=== PATIENT | female | born 1985 | race Caucasian/White ===

== ENCOUNTER 2017-02-05 07:06 | Emergency (ER) | payer OTHER ==
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
[2017-02-05] MEDS ORDERED: FLEXERIL PO ONE (07:49)
[2017-02-05] MEDS ORDERED: NORCO 5/325 PO ONE (07:49)
--- NOTE | 2017-02-05 08:49 | XRay Report ---
AP CHEST: HISTORY: chest pain AP view of the chest demonstrates a normal mediastinal and cardiac contour with clear lungs and normal bony and soft tissue structures. IMPRESSION: Unremarkable AP chest.
--- NOTE | 2017-02-05 08:50 | XRay Report ---
CERVICAL SPINE, 3 views: History: Neck pain. Findings: The vertebral bodies, disk spaces, posterior elements and prevertebral soft tissues are unremarkable. The dens is intact. No acute fracture or malalignment is identified. Impression: 1. No evidence for acute injury to the cervical spine.
--- NOTE | 2017-02-05 08:50 | XRay Report ---
RIGHT SHOULDER: History: Pain. Routine views demonstrate normal bony and soft tissue structures with normal joint alignment of the shoulder. IMPRESSION: Normal study.
--- NOTE | 2017-02-05 08:51 | XRay Report ---
THORACOLUMBAR SPINE, 2 VIEWS History: Back pain. Findings: There is moderate dextrocurvature of the thoracolumbar junction. No evidence for fracture, subluxation or bone lesion. No significant degenerative changes. Impression: No acute injury appreciated. Scoliosis.
[2017-02-05 09:40] VITALS: BP 107/70
== END 2017-02-05 09:41 | disposition home or self-care (01) ==
LOC: ED 07:06
DX: S16.1XXA Strain of muscle, fascia and tendon at neck level, initial encounter (principal); M41.25 Other idiopathic scoliosis, thoracolumbar region; M25.511 Pain in right shoulder; M54.5 Low back pain; Z91.013 Allergy to seafood; V89.2XXA Person injured in unspecified motor-vehicle accident, traffic, initial encounter; Y93.89 Activity, other specified; Y99.9 Unspecified external cause status; Y92.488 Other paved roadways as the place of occurrence of the external cause
CPT/HCPCS: 71010; 72040; 72080